=== PATIENT | male | born 1955 ===

== ENCOUNTER 2023-11-02 08:55 | Outpatient (AMB) | payer MEDICARE, SELFPAY ==
--- NOTE | 2023-11-02 08:57 | MHC.OFFVIS ---
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 The patient did undergo right knee arthroscopic surgery several years ago. He got fairly good relief from that surgery initially. The patient has tried Tylenol and anti-inflammatory medicines which gave him only mild relief. States that at times it feels like his right knee will give out. Allergies No Known Allergies Allergy (Verified 11/02/23 08:57) Medication List - Last Reconciled 11/02/23 by Gato Mueller MD gabapentin 300 mg PO TID hydrocortisone 2.5% appl topical mometasone 0.1% 0 appl topical Physical Exam Const Other: Well-nourished well-developed very friendly male awake alert and oriented x3 in no acute distress Extrem Other: Bilateral lower extremity examination shows good capillary refill, no skin lesions noted, normal sensation light touch Right knee examination shows minimal effusion, mild crepitus with range of motion, tenderness along his medial joint line, positive Juana's test, no instability Office Procedures Joint Injection/Drain Joint Injection/Drain Primary Site: right knee Prep: site was prepped using aseptic technique Injected: 40 mg of, DepoMedrol and 1% plain lidocaine Procedure: The patient tolerated the procedure well Coding 49949 - Large joint Procedure code (CPT) selection complete Results Reviewed Results Reviewed: X-rays of the patient's right knee show mild diffuse joint space narrowing, no acute bony abnormalities Assessment & Plan Assessment & Plan (1) Right knee pain: Code(s): M25.561 - Pain in right knee Category: Medical Plan Mr. Thurman presents with right knee pain due to early degenerative joint disease as well as possible recurrent medial meniscus tear. I had a lengthy discussion with the patient regarding the treatment options. Wishes to hold off on surgery for as long as possible. I agree with this plan. The risks and benefits of a right knee cortisone injection were discussed at length with the patient. The patient wished to proceed. He tolerated the injection well. He will continue with his activity modifications. He will follow up with me on an as-needed basis should his symptoms not plateau at an unacceptable level over the next few months. I spent 22 minutes in reviewing the patient's records and imaging studies, seeing the patient and documenting in the medical record. Orders: Orders XR knee RT 3V 11/02/23 M25.561 - Pain in right knee AMB Joint Injection/Aspiration 11/02/23 M25.561 - Pain in right knee Coding Level of Care Code Est Pt Level 3 (76702) Diagnoses Right knee pain M25.561 CPT Codes Coding - 89513 Large joint: 44525 - Large joint ([id number])
== END 2023-11-02 09:22 | disposition home or self-care (01) ==
PROVIDERS: Visit Provider Orthopaedic Surgery
DX: M25.561 Pain in right knee (principal)
CPT/HCPCS: 20610; 99213

== ENCOUNTER 2023-11-02 11:38 | Outpatient (REF) | payer MEDICARE, SELFPAY ==
--- NOTE | ~2023-11-02 | XR_ITS ---
EXAMINATION: XR KNEE, RIGHT CLINICAL INFORMATION: Pain. COMPARISON: None available. TECHNIQUE: Three views of the right knee. FINDINGS: Trace joint effusion. Mild narrowing of the medial compartment. Tiny medial marginal and posterior patellar osteophytes. Focal prepatellar soft tissue swelling along the inferomedial aspect of the patella. XR/XR knee RT 3V IMPRESSION: 1. Mild degenerative changes. 2. Focal prepatellar soft tissue swelling along the anterior inferomedial aspect of the patella.
== END 2023-11-02 11:39 | disposition home or self-care (01) ==
LOC: HO.HOSX 11:38
PROVIDERS: Visit Provider Orthopaedic Surgery
DX: M17.11 Unilateral primary osteoarthritis, right knee (principal)
CPT/HCPCS: 20610; 73562; 99212; J1010

== ENCOUNTER 2024-05-10 10:41 | Outpatient (AMB) | payer MEDICARE, SELFPAY ==
--- NOTE | 2024-05-10 10:52 | MHC.OFFVIS ---
Vital Signs 05/10/24 10:55 Height 6 ft Weight 218 lb BMI 29.6 Intake Visit Reasons: FC- Displaced fx of lateral end of LT clavicle Intake Note: Jake is a 68 year old right hand dominant male who presents today for an evaluation of left clavicle fx, DOI 05/08/24. Patient reports that he fell on his right side on the frozen ground. He was seen at [facility] in [place] where x-rays were taken and placed in a sling. He has ongoing discomfort/pain with a current pain level 1-2 out of 10. States with certain arm positions his pain increase to a pain level 7-8 out of 10. Denies numbness or tingling. Allergies No Known Allergies Allergy (Verified 05/10/24 10:53) Medication List - Last Reconciled 05/10/24 by Adams Cleveland PA-C gabapentin 300 mg PO TID hydrocortisone 2.5% appl topical mometasone 0.1% 0 appl topical HPI HPI FC- Displaced fx of lateral end of LT clavicle: Details: 68-year-old male presents to the office today for an injury he sustained to his left clavicle. He states he was carrying a tool bag and slipped and fell. He was seen at an urgent care where x-rays were obtained he was placed in a sling and referred to our office for ortho eval. 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 [facility] Surgical History (Updated 05/10/24 @ 10:54 by ONEIL Brooks) Hx of shoulder surgery Social History (Updated 05/10/24 @ 10:55 by ONEIL Brooks) Patient Tobacco Use Status: Never used Tobacco Current occupational status: unemployed Current occupation: right hand dominant Review of Systems Const All systems reviewed & are unremarkable except as noted in HPI and below Physical Exam Vital Signs: BMI result Body Mass Index 29.6 Const General: cooperative and no acute distress Orientation/consciousness: patient oriented x3 Resp Effort & Inspection: normal respiratory effort and able to speak in complete sentences Cardio Peripheral pulses: Peripheral pulses 2+ throughout Neuro General: patient oriented x3 Extrem Other: Left Clavicle No tenting. No skin breakdown. There is tenderness over the fracture site. Neurovascularly intact. Office Procedures AMB Fracture Care Fracture Billing Code: Fracture Billing Code Results Reviewed Results Reviewed: X-rays of the left clavicle obtained in the office today and reviewed by me show a minimally displaced left clavicle fracture towards the distal end. Assessment & Plan Assessment & Plan (1) Closed left clavicular fracture: Code(s): S42.002A - Fracture of unspecified part of left clavicle, initial encounter for closed fracture Category: Medical Plan: Case was discussed with Dr. Garrison who was available to see the patient with me today. We explained the extent of the injury to the patient and his spouse along with the options available which include surgical versus nonsurgical intervention. At this time because the fracture is minimally displaced and towards the most distal end of the clavicle the decision has been made to treat this without surgery. He can discontinue the use of the sling if he is at home and in a controlled environment. He can perform motions at waist level nothing overhead. No weight and nothing overhead with weight. I explained the importance of working on good posture and scapular stabilization techniques. He will see me back in 4-6 weeks with x-rays sooner if needed. Orders: Orders XR clavicle LT Today M89.8X1 - Other specified disorders of bone, shoulder Coding Level of Care Code New Pt Level 4 (14678) Complex EM visit Add On G2211 Diagnoses Closed left clavicular fracture S42.002A CPT Codes Fracture Care - Fracture Billing Code: Fracture Billing Code ([id number])
[2024-05-10 10:55] VITALS: BMI 29.6
== END 2024-05-10 11:30 | disposition home or self-care (01) ==
PROVIDERS: Visit Provider Physician Assistant
DX: S42.002A Fracture of unspecified part of left clavicle, initial encounter for closed fracture (principal)
CPT/HCPCS: 99213; G2211

== ENCOUNTER 2024-05-10 11:35 | Outpatient (REF) | payer MEDICARE, SELFPAY ==
--- NOTE | ~2024-05-10 | XR_ITS ---
EXAMINATION: XR CLAVICLE, LEFT CLINICAL INFORMATION: M89.8X1 - Other specified disorders of bone, shoulder COMPARISON: None available. TECHNIQUE: Three views of the left clavicle. FINDINGS: Is a lateral clavicle fracture with overriding of fracture fragments. The glenohumeral and AC joint is normal. There is a solitary screw along the left greater tuberosity from previous rotator cuff intervention. There is mild soft tissue swelling. XR/XR clavicle LT IMPRESSION: Lateral clavicle fracture with overriding of fracture fragments. Electronically signed by: Fransico Travis MD 05/11/2024 09:36 AM QUINN
== END 2024-05-10 11:36 | disposition home or self-care (01) ==
LOC: HO.HOSX 11:35
PROVIDERS: Visit Provider Physician Assistant
DX: M89.8X1 Other specified disorders of bone, shoulder (principal); S42.002A Fracture of unspecified part of left clavicle, initial encounter for closed fracture
CPT/HCPCS: 73000; 99212

== ENCOUNTER 2024-06-20 08:41 | Outpatient (AMB) | payer MEDICARE, SELFPAY ==
--- NOTE | 2024-06-20 08:57 | A.OFFVIS_ITS ---
Vital Signs 06/20/24 09:02 Height 6 ft Weight 218 lb BMI 29.6 Intake Visit Reasons: OV- LT clavicle fx, DOI 05/08/24 w/ XR Intake Note: Jake is a 68 year old right hand dominant male who presents today for a follow up of left clavicle fx, DOI 05/08/24. Xrays updated. Patient reports he is doing well, states his pain level will fluctuate for a 2-5 out of 10. He describes his discomfort as a dull ache. He would like to discuss when he is able to return to therapy for his neck. Allergies No Known Allergies Allergy (Verified 06/20/24 09:02) Medication List - Last Reconciled 06/20/24 by Adams Cleveland PA-C gabapentin 300 mg PO TID hydrocortisone 2.5% appl topical mometasone 0.1% 0 appl topical HPI HPI OV- LT clavicle fx, DOI 05/08/24 w/ XR: Details: 68-year-old male presents to the office today for a follow-up left clavicle fracture date of injury 05/08/2024. States since his last visit with me he has been performing activities as tolerated which include lifting reaching and performing activities overhead. He states that he does not have significant discomfort however he may notice a dull ache around the shoulder region. He does have a chronic neck condition that is being treated with physical therapy which he has had to put on hold until he was cleared from his clavicle injury. [facility] Surgical History Hx of shoulder surgery Social History Patient Tobacco Use Status: Never used Tobacco Current occupational status: unemployed Current occupation: right hand dominant Review of Systems Const All systems reviewed & are unremarkable except as noted in HPI and below Physical Exam Vital Signs: BMI result Body Mass Index 29.6 Extrem Other: Left clavicle skin is intact no open wounds or abrasions. No bony prominence. Mild discomfort around the soft tissues of the clavicle but no specific bony tenderness to palpation. Has full range of motion in all planes and neurovascularly intact. Results Reviewed Results Reviewed: X-rays of the left clavicle obtained in the office today and reviewed by me show a minimally displaced left clavicle fracture towards the distal end with interval healing Assessment & Plan Assessment & Plan (1) Closed left clavicular fracture: Code(s): S42.002A - Fracture of unspecified part of left clavicle, initial encounter for closed fracture Category: Medical Qualifiers: Encounter type: subsequent encounter Clavicle location: lateral end Fracture alignment: displaced Fracture healing: with routine healing Qualified Code(s): S42.032D - Displaced fracture of lateral end of left clavicle, subsequent encounter for fracture with routine healing Plan: He will continue with activities as tolerated as long as he is not having significant pain or new symptoms. He can resume his therapy for his neck which I think would also include some scap stabilization exercises to help with the shoulder. He does not need to return to see me unless there are concerns otherwise follow up as needed. Orders: Orders XR clavicle LT Today M89.8X1 - Other specified disorders of bone, shoulder Coding Level of Care Code Global (38809) Diagnoses Closed displaced fracture of acromial end of left clavicle with routine healing, subsequent encounter S42.032D Encounter type: subsequent encounter Clavicle location: lateral end Fracture alignment: displaced Fracture healing: with routine healing
[2024-06-20 09:02] VITALS: BMI 29.6
--- OUTSIDE RECORDS SUMMARY | 2024-06-20 09:20 | XMS_ITS | Clinical Summary ---
Author Organization [facility] [address] [facility] [address] Address [address] [place] [address] Phone Care Team Providers Care Sales Counselor Name Role Phone Vipul Cabrales MD Primary Care Provider [phone] Allergies No known active allergies Medications sildenafiL (VIAGRA) 50 mg tablet TAKE ONE TABLET BY MOUTH AT BEDTIME NEEDED 2 Active EPINEPHrine (EpiPen 2-Chris) 0.3 mg/0.3 mL injection USE DIRECTED FOR ANAPHYLAXIS THEN CALL 911 3 Active hydrocortisone (ANUSOL-HC) 2.5 % rectal cream Apply bid prn 3 Active hydrocortisone 2.5 % cream Apply 2 times a day as needed 4 Active gabapentin (NEURONTIN) 300 mg capsule Take 600 mg by mouth at bedtime. Active mometasone (ELOCON) 0.1 % cream Apply sparingly twice a day to eczema as needed 1 Active MEN'S MULTI-VITAMIN ORAL 1 daily Active medical supply, miscellaneous (MISCELLANEOUS MEDICAL SUPPLY MISC) CPAP HISTORICAL (HISTORICAL CPAP) by Nasal route at bedtime. ASV E 5 max 10/ I 10 , [employer] Active terbinafine (LamISIL) 250 mg tablet Take 1 tablet (250 mg total) by mouth 1 (one) time each day. 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 Tipton Stable based on 03/06 follow up ultrasound; to recheck in 03/07 GERD (gastroesophageal reflux disease) 2 Overview (04/03/2024): Garrett Matthew PA-c, Dr. Tipton 12/04 - erosions on upper endoscopy, abdominal ultrasound within normal limits 01/04- mAalia Pleitez RD Eczema 07/30/2011 Overview (04/03/2024): Woo Melo PA-C Lateral epicondylitis 06/23/2011 Overview (04/03/2024): Attain physical therapy Tear of medial meniscus of right knee 05/25/2011 Overview (04/03/2024): Dr. Choi- 05/06- arthoscopy pending Shoulder pain 02/24/2011 Overview (04/03/2024): Dr. Choi- arthroscopy on L in , 05/09 - right cuff repair; [facility] Obstructive sleep apnea 10/09/2010 Overview (04/03/2024): Dr. Giron - CPAP 11/04- adaptive servo ventilation (ASV) [facility] Polysomnogram treatment study with AVAPS. Date 12/28/2016 . SE 63 % SM 66 %; spent 16 % of the study in REM. On AVAPS; RDI 3/9 (AHI 2.8), Central apneas 0; Obstructive apneas 0; Mixed apneas 0; hypopneas 15; RERAs 6; and, average oxygen saturation was 96%. For the entire study, PLMs ~44. [facility] Polysomnogram ASV treatment study. Date 08/22/2020. Wt 200#; BMI 27; SE 62% SM 63%; spent 23% of the study in REM. On ASV; RDI 2.5 (AHI 1.93), Central apneas 3; Obstructive apneas 4; Mixed apneas 0; hypopneas three; RERAs three; and, average oxygen saturation was 95%. For the entire study, PLMs ~64. ASV at EPAP 10 -15 cm; pressure support 0-15; max pressure 25 cm; backup respiratory rate auto. 2016 echocardiogram showed EF 60 to 65%. 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 Choi, [facility] Insomnia 07/08/2010 Overview (04/03/2024): Dr. Giron s/p PSG, CPAP Left knee pain 07/08/2010 Pure hypercholesterolemia 12/21/2006 Encounters Date Type Department Care Team Description 05/01/2024 11:35 AM EST Lab Draw Station - [address] [phone] Elevated PSA; Encounter for screening for malignant neoplasm of prostate; Toenail fungus 05/01/2024 10:45 AM EST Office Visit Adult Medicine - [address] [id number] Lilia Ivey PA Lateral epicondylitis of both elbows (Primary Dx); Elevated PSA; Encounter for screening for malignant neoplasm of prostate; Toenail fungus; Erectile dysfunction, unspecified erectile dysfunction type; Obstructive sleep apnea from Last 3 Months Immunizations Name Administration Dates Next Due Influenza trivalent, 0.5mL ( Fluad) 65yo and older 02/17/2021 Influenza trivalent, 0.5mL, preservative free (Fluarix; FluLaval; Fluzone) ages 6mo and older (Afluria) 3 years and older 02/05/2020,01/28/2017,02/20/2015,2012,03/11/2008 Influenza trivalent, with preservative (Fluzone; Afluria) 6mo and older 01/28/2019 Moderna SARS-CoV-2 COVID-19, mRNA, LNP-S, preservative free 02/25/2021 Pneumococcal conjugate 20 va lent (Prevnar 20, PCV 20) 2mo and older 02/10/2023 Td Tetanus diptheria (Tdvax) 7yo and older 11/30/2002 Td, Unspecified 11/30/2002 Tdap Tetanus diptheria acell ular pertussis (Boostrix; Adacel) 7yo and older 10/22/2015 Zoster recombinant (Shingrix ) 19yo and older 04/14/2019,01/28/2019 Surgical History Surgery Date Site/Laterality Comments SHOULDER SURGERY 2009 PROCEDURE: HISTORICAL SHOULDER SURGERY; COMMENT: Rene Choi - bone spurs NASAL SEPTUM SURGERY PROCEDURE: HI SEPTOPLASTY/SUBMUCOUS RESECJ W/WO CARTILAGE GRF; COMMENT: deviated septum repair VASECTOMY PROCEDURE: HI VASECTOMY UNI/BI SPX W/POSTOP SEMEN EXAMS COLONOSCOPY 08/20/2008 PROCEDURE: HISTORICAL COLONOSCOPY; COMMENT: Dr Acevedo - hemorrhoids o/w normal. ESOPHAGOGASTRODUODENOSCOPY 12/13/11 PROCEDURE: HI EGD TRANSORAL BIOPSY SINGLE/MULTIPLE; COMMENT: antral erosion/superficial ulcer bx eroison, anturm and duod - duod nl, antral eroison, H.pylori neg, GE jxn bx =erosive esophagitis SHOULDER SURGERY 07/05/12 PROCEDURE: HISTORICAL SHOULDER SURGERY; COMMENT: Left rotator cuff repair - Dr. Choi Family History Medical History Relation Name Comments Other cancer Father small cell lymp karissa Hypertension Mother Relation Name Status Comments Father Mother Alive Social History Tobacco Use Types Packs/Day Years Used Date Smoking Tobacco: Never Smokeless Tobacco: Never Alcohol Use Standard Drinks/Week Comments Not Currently 0 (1 standard drink = 0.6 oz pur e alcohol) Sex and Gender Information Value Date Recorded Sex Assigned at Male 03/27/2024 8:59 AM EST Legal Sex Male 10:35 PM EST Gender Identity Male 03/27/2024 8:59 AM EST Sexual Orientation Not on file Obstetrics History Last Filed Vital Signs Vital Sign Reading Time Taken Comments Blood Pressure 122/76 05/01/2024 10:51 AM EST Pulse 68 05/01/2024 10:51 AM EST Temperature 36.7 ??C (98 ??F) 05/01/2024 10:51 AM EST Respiratory Rate - - Oxygen Saturation - - Inhaled Oxygen Concentration - - Weight 98.9 kg (218 lb) 05/01/2024 10:51 AM EST Height 182.9 cm (6') 05/01/2024 10:51 AM EST Body Mass Index 29.57 05/01/2024 10:51 AM EST Plan of Treatment Upcoming Encounters Date Type Department Care Team (Late st Contact Info) Description 07/17/2024 3:00 PM EDT Office Visit Adult Medicine [facility] [address] [place] [address] Vipul Cabrales MD [address] [place] [address] Health Maintenance Due Date Last Done Comments Depression Screening 04/03/2022 Medicare Annual Wellness Visit 04/03/2022 Social Influencers of Health Screening 04/03/2022 Falls Risk Assessment 2022 Hepatitis B Vaccines (2 of 2 - CpG 2-dose series) 11/11/2022 10/14/2022 COVID-19 Vaccine ( season) 2023 10/14/2022, 08/17/2021, 02/25/2021, Additional history exists DTaP,Tdap,and Td Vaccines (4 - Td or Tdap) 10/21/2025 10/22/2015, 11/30/2002, 11/30/2002 Cholesterol Screening (Lipid Panel) 11/14/2028 11/15/2023, 11/15/2023 Colorectal Cancer Screening: Colonoscopy 02/20/2029 02/20/2019 RSV Immunization Patients 60+ Years Old (1 - 1-dose 75+ series) 2032 Hepatitis C Screening Completed 10/22/2015 Zoster Vaccines Completed 04/14/2019, 01/28/2019 Pneumococcal Vaccine: 50+ Years Completed 02/10/2023 Influenza Vaccine Completed 02/24/2024, , 02/12/2022, Additional history exists HIB Vaccines Aged Out No longer eligi ble based on patient's age to complete this topic HPV Vaccines Aged Out No longer eligi ble based on patient's age to complete this topic Hepatitis A Vaccines Aged Out No long er eligible based on patient's age to complete this topic IPV Vaccines Aged Out No longer eligi ble based on patient's age to complete this topic MMR Vaccines Aged Out No longer eligi ble based on patient's age to complete this topic Meningococcal ACWY Vaccine Aged Out N o longer eligible based on patient's age to complete this topic Meningococcal B Vacine Aged Out No lo nger eligible based on patient's age to complete this topic RSV Immunization Patients Under 20 months Aged Out No longer eligible based on patient's age to complete this topic Varicella Vaccines Aged Out No longer eligible based on patient's age to complete this topic Procedures Procedure Name Priority Date/Time Associated Diagnosis Comments COMPREHENSIVE METABOLIC PANEL Routine 05/01/2024 11:37 AM EST Toenail fungus PROSTATE SPECIFIC ANTIGEN SCREEN Routine 05/01/2024 11:37 AM EST Elevated PSA Encounter for screening for malignant neoplasm of prostate LIPID PANEL Routine 11/15/2023 COLONOSCOPY Routine 02/20/2019 HEPATITIS C SCREENING Routine 10/22/2015 from Last 3 Months or Most Recently Relevant to Health Maintenance Results * (ABNORMAL) Prostate specific antigen screen (05/01/2024 11:37 AM EST) PSA 5.14(H) 0.00 - 4.00 ng/mL LAB CHEMISTRY METHOD 05/01/2024 4:18 PM EST [facility] Blood Venous blood specimen / Unknown Venipuncture / Unknown 05/01/2024 11:37 AM EST 05/01/2024 11:37 AM EST Narrative [facility] - 05/01/2024 4:18 PM EST The Siemens Advia Centaur Chemiluminescent Immunoassay is used. Results obtained with different assay methods or kits cannot be used interchangeably. Results cannot be interpreted as absolute evidence of the presence or absence of malignant disease. us Lilia RITTER LAB BLOOD ORDERABLES Final Result [facility] [address] [place] [address], * Comprehensive metabolic panel (05/01/2024 11:37 AM EST) Sodium 137 133 - 145 mmol/L LAB CHEMISTRY METHOD 05/01/2024 3:47 PM [facility] Potassium 4.4 3.5 - 5.5 mmol/L LAB CHEMISTRY METHOD 05/01/2024 3:47 PM [facility] Chloride 104 96 - 110 mmol/L LAB CHEMISTRY METHOD 05/01/2024 3:47 PM [facility] CO2 27 21 - 32 mmol/L LAB CHEMISTRY METHOD 05/01/2024 3:47 PM [facility] Anion Gap 6 3 - 11 LAB CHEMISTRY METHOD 05/01/2024 3:47 PM [facility] Glucose 93 70 - 100 mg/dL LAB CHEMISTRY METHOD 05/01/2024 3:47 PM [facility] BUN 21 5 - 25 mg/dL LAB CHEMISTRY METHOD 05/01/2024 3:47 PM [facility] Creatinine 0.96 0.70 - 1.30 mg/dL LAB CHEMISTRY METHOD 05/01/2024 3:47 PM [facility] eGFR 87 >=60 mL/min/1. 73m2 LAB CHEMISTRY METHOD 05/01/2024 3:47 PM [facility] Comment:Calculation based on the??Chronic Kidney Disease Epidemiology Collaboration (CKD-EPI) equation refit??without adjustment for race. BUN/Creatinine Ratio 21.9 LAB CHEMISTRY METHOD 05/01/2024 3:47 PM [facility] Calcium 9.4 8.5 - 10.5 mg/dL LAB CHEMISTRY METHOD 05/01/2024 3:47 PM [facility] AST (SGOT) 30 10 - 42 unit/L LAB CHEMISTRY METHOD 05/01/2024 3:47 PM [facility] ALT (SGPT) 50 10 - 60 unit/L LAB CHEMISTRY METHOD 05/01/2024 3:47 PM [facility] Alkaline Phosphatase 75 42 - 121 unit/L LAB CHEMISTRY METHOD 05/01/2024 3:47 PM [facility] Total Protein 7.4 6.0 - 8.0 g/dL LAB CHEMISTRY METHOD 05/01/2024 3:47 PM [facility] Albumin 4.2 3.2 - 5.0 g/dL LAB CHEMISTRY METHOD 05/01/2024 3:47 PM [facility] Total Bilirubin 0.6 0.0 - 1.4 mg/dL LAB CHEMISTRY METHOD 05/01/2024 3:47 PM [facility] Blood Venous blood specimen / Unknown Venipuncture / Unknown 05/01/2024 11:37 AM EST 05/01/2024 11:37 AM EST Lilia RITTER LAB BLOOD ORDERABLES Final Result [facility] [address] [place] [address], * (ABNORMAL) Lipid panel (11/15/2023) Pathologist [facility] LDL/HDL Ratio 3 0 - 4 Triglycerides 127 0 - 150 mg/dL Cholesterol 243(A) 0 - 200 mg/dL HDL 84 >=40 mg/dL LDL Cholesterol 134(A) 0 - 100 mg/dL Blood Venous blood specimen / Unknown Historical Provider LAB BLOOD ORDERABLES Demetra l Result * Colonoscopy (02/20/2019) Pathologist [facility] Colonoscopy abstracted, no interpretation Anatomical Region Laterality Modality Other Historical Provider HEALTH MAINTENANCE Final Result * Hepatitis C Screening (10/22/2015) Hepatitis C Screening abstracted us Historical Provider HEALTH MAINTENANCE Final Result from Last 3 Months or Most Recently Relevant to Health Maintenance Insurance MEDICARE [facility] Care Teams Sales Counselor Relationship Specialty Start Date End Date Vipul Cabrales MD [address] [place] [id number] PCP - General Internal Medicine 06/05/15
--- OUTSIDE RECORDS SUMMARY | 2024-06-20 09:20 | XMS_ITS | Clinical Summary ---
Author Organization [facility] Address [address] [place] [address] Care Team Providers Care Wardrobe Specialty Worker Name Role Phone Arnold Cabrales MD Primary Care Provider [phone] Allergies No known active allergies Medications Medication Sig Dispensed Refills Start Date End Date Status gabapentin (NEURONTIN) 300 MG capsule Take 300-600 mg by mouth every night at bedtime. 0 08/26/2021 Active meloxicam (MOBIC) 15 MG tablet TAKE ONE TABLET BY MOUTH ONCE A DAY FOR 30 DAYS 0 08/13/2021 Active tamsulosin (FLOMAX) 0.4 MG CAPS TAKE 1 CAPSULE BY MOUTH EVERYDAY AT BEDTIME 0 08/26/2021 Active sildenafil (VIAGRA) 50 MG tablet TAKE 1 TABLET BY MOUTH AT BEDTIME NEEDED 0 09/03/2021 Active Family History Medical History Relation Name Comments Cancer Father Diabetes Mother Hypertension Mother Relation Name Status Comments Father Mother Social History Tobacco Use Types Packs/Day Years Used Date Smoking Tobacco: Never Smokeless Tobacco: Never Alcohol Use Standard Drinks/Week Comments Yes 1 (1 standard drink = 0.6 oz pur e alcohol) Sex and Gender Information Value Date Recorded Sex Assigned at Not on file Gender Identity Not on file Sexual Orientation Not on file Job Start Date Occupation Industry Not on file Not on file Not on file Last Filed Vital Signs Vital Sign Reading Time Taken Comments Blood Pressure - - Pulse - - Temperature - - Respiratory Rate - - Oxygen Saturation - - Inhaled Oxygen Concentration - - Weight 93 kg (205 lb) 09/03/2021 8:37 AM EDT Height 182.9 cm (6') 09/03/2021 8:37 AM EDT Body Mass Index 27.8 09/03/2021 8:37 AM EDT Plan of Treatment Health Maintenance Due Date Last Done Comments Hepatitis C Screening 1955 COVID-19 Vaccine (#1) 05/11/1958 Depression Screening 1969 BMI Counseling 11/09/1975 Preventative Health Evaluation 11/09/1975 Colon Cancer Screening (Colonoscopy) 2002 Fall Risk Assessment 2022 Pneumococcal Vaccine (1 of 1 - PCV) 2022 Influenza Vaccine (#1) 2023 , 02/05/2020, 01/28/2019, Additional history exists DTap / Tdap / Td (2 - Td or Tdap) 10/21/2025 10/22/2015 RSV Adult > 60+ Yrs or (1 - 1-dose 75+ series) 2032 Shingrix-Zoster Vaccine Completed 04/14/2019, 01/28 Hepatitis B Vaccines Aged Out No long er eligible based on patient's age to complete this topic RSV Ped < 20 months Aged Out No longe r eligible based on patient's age to complete this topic Care Teams Wardrobe Specialty Worker Relationship Specialty Start Date End Date Arnold Cabrales MD PCP - General Information Technology Internship 08/21/21
--- OUTSIDE RECORDS SUMMARY | 2024-06-20 09:20 | XMS_ITS | Patient Health Record ---
Author Organization [facility], Address [address] [place] [address] Support Name Relationship Address Phone Jake Thurman Guarantor Unknown [phone] Reason For Referral No Information Plan Of Treatment Pending Test Test Name Order Date SARS - CoV - 2 Antigen 04/01/2020 Insurance Providers Payer Name Payer Address Payer Phone Subscriber Number Group Number Insured Name Patient Relationship to Insured Coverage Start Date Coverage End Date [place] [facility] [address] [place] [address] [id number] Jake Thurman Self - patient is the insured Medical (General) History Surgical History Surgery Date(Month/Year)
== END 2024-06-20 11:14 | disposition home or self-care (01) ==
PROVIDERS: Visit Provider Physician Assistant
DX: S42.032D Displaced fracture of lateral end of left clavicle, subsequent encounter for fracture with routine healing (principal)
CPT/HCPCS: 99213

== ENCOUNTER → 2024-06-20 08:42 | Outpatient (BNV) | payer MEDICARE, SELFPAY | PROVIDERS: Visit Provider Radiology Diagnostic Radiology | DX: S42.002D Fracture of unspecified part of left clavicle, subsequent encounter for fracture with routine healing (principal) | CPT/HCPCS: 73000 ==

== ENCOUNTER 2024-06-20 10:04 | Outpatient (REF) | payer MEDICARE, SELFPAY ==
--- NOTE | ~2024-06-20 | XR_ITS ---
EXAMINATION: XR CLAVICLE LEFT HISTORY: M89.8X1 - Other specified disorders of bone, shoulder COMPARISON: Comparison is made with the prior examination dated 05/10/2024. FINDINGS: Two views of the left clavicle are submitted. Osseous mineralization is normal. Again seen is a mildly displaced fracture of the distal clavicle. The appearance is not significantly changed from the prior study. Again noted is a screw in the region of the greater tuberosity of the humerus. The glenohumeral and acromioclavicular joint spaces are preserved. The soft tissues are unremarkable. XR/XR clavicle LT IMPRESSION: Mildly displaced fracture of the distal clavicle without change. Electronically signed by: Xavier Gilliland MD 06/20/2024 11:39 AM QUINN
--- OUTSIDE RECORDS SUMMARY | 2024-06-22 11:11 | XMS_ITS | Clinical Summary ---
Author Organization [facility] [address] [facility] [address] Address [address] [place] [address] Phone Care Team Providers Care Operations Controller Name Role Phone Vipul Cabrales MD Primary Care Provider [phone] Allergies No known active allergies Medications sildenafiL [...] endoscopy, abdominal ultrasound within normal limits 01/04- Amalia Pleitez RD Eczema 07/30/2011 Overview (04/03/2024): Woo [...] - CPAP 11/04- adaptive servo ventilation (ASV) [facility] [place] study with AVAPS. Date 12/28/2016 . SE 63 % SM 66 %; spent 16 % of the study in REM. On AVAPS; RDI 3/9 (AHI 2.8), Central apneas 0; Obstructive apneas 0; Mixed apneas 0; hypopneas 15; RERAs 6; and, average oxygen saturation was 96%. For the entire study, PLMs ~44. [facility] Polysomnogram ASV treatment study. Date [...] patella, right 07/08/2010 Overview (04/03/2024): Dr. Choi, [facility] Insomnia 07/08/2010 Overview (04/03/2024): Dr. Giron s/p PSG, CPAP Left knee pain 07/08/2010 Pure hypercholesterolemia 12/21/2006 Encounters Date Type Department Care Team Description 05/01/2024 11:35 AM EST Lab Draw Station - [address] [phone] Elevated PSA; Encounter for screening for malignant neoplasm of prostate; Toenail fungus 05/01/2024 10:45 AM EST Office Visit Adult Medicine - [address] [phone] Lilia Ivey PA Lateral epicondylitis of both [...] - bone spurs NASAL SEPTUM SURGERY PROCEDURE: [place] SEPTOPLASTY/SUBMUCOUS RESECJ W/WO CARTILAGE GRF; COMMENT: deviated septum repair VASECTOMY PROCEDURE: [place] VASECTOMY UNI/BI SPX W/POSTOP SEMEN EXAMS COLONOSCOPY 08/20/2008 PROCEDURE: HISTORICAL COLONOSCOPY; COMMENT: Dr Acevedo - hemorrhoids o/w normal. ESOPHAGOGASTRODUODENOSCOPY 12/13/11 PROCEDURE: [place] EGD TRANSORAL BIOPSY SINGLE/MULTIPLE; COMMENT: antral erosion/superficial [...] 3:00 PM EDT Office Visit Adult Medicine [facility] [address] [place] [address] Vipul Cabrales MD [address] [place] [address] Health Maintenance Due Date Last Done Comments [...] LAB CHEMISTRY METHOD 05/01/2024 4:18 PM EST [facility] Blood Venous blood specimen / Unknown Venipuncture / Unknown 05/01/2024 11:37 AM EST 05/01/2024 11:37 AM EST Narrative [facility] - 05/01/2024 4:18 PM EST The Siemens Advia Centaur Chemiluminescent Immunoassay is used. Results obtained with different assay methods or kits cannot be used interchangeably. Results cannot be interpreted as absolute evidence of the presence or absence of malignant disease. us Lilia RITTER LAB BLOOD ORDERABLES Final Result [facility] [address] [place] [address], * Comprehensive metabolic panel (05/01/2024 11:37 AM [...] Lilia RITTER LAB BLOOD ORDERABLES Final Result [facility] [address] [place] [address], * (ABNORMAL) Lipid panel (11/15/2023) Pathologist [facility] LDL/HDL Ratio 3 0 - 4 Triglycerides 127 0 - 150 mg/dL Cholesterol 243(A) 0 - 200 mg/dL HDL 84 >=40 mg/dL LDL Cholesterol 134(A) 0 - 100 mg/dL Blood Venous blood specimen / Unknown Historical Provider LAB BLOOD ORDERABLES Demetra l Result * Colonoscopy (02/20/2019) Pathologist [facility] Colonoscopy abstracted, no interpretation Anatomical Region Laterality Modality Other Historical Provider HEALTH MAINTENANCE Final Result * Hepatitis C Screening (10/22/2015) Hepatitis C Screening abstracted us Historical Provider HEALTH MAINTENANCE Final Result from Last 3 Months or Most Recently Relevant to Health Maintenance Insurance MEDICARE [facility] Care Teams Operations Controller Relationship Specialty Start Date End Date Vipul Cabrales MD [address] [place] [id number] PCP - General Internal Medicine 06/05/15
--- OUTSIDE RECORDS SUMMARY | 2024-06-22 11:11 | XMS_ITS | Patient Health Record ---
Author Organization [facility], Address [address] [place] [address] Support Name Relationship Address Phone Jake Thurman Guarantor Unknown [phone] Reason For Referral No Information Plan Of Treatment Pending Test Test Name Order Date SARS - CoV - 2 Antigen 04/01/2020 Insurance Providers Payer Name Payer Address Payer Phone Subscriber Number Group Number Insured Name Patient Relationship to Insured Coverage Start Date Coverage End Date [place] [address] [place] [address] [id number] Jake Thurman Self - patient is the insured Medical (General) History Surgical History Surgery Date(Month/Year)
--- OUTSIDE RECORDS SUMMARY | 2024-06-22 11:11 | XMS_ITS | Clinical Summary ---
Author Organization [facility] Address [address] [place] [address] Care Team Providers Care Electrical Maintenance Technician Name Role Phone Arnold Cabrales MD Primary Care Provider [phone] Allergies No known active allergies Medications Medication [...] age to complete this topic Care Teams Electrical Maintenance Technician Relationship Specialty Start Date End Date Arnold Cabrales MD PCP - General Timekeeper 08/21/21
== END 2024-06-20 10:05 | disposition home or self-care (01) ==
LOC: HO.HOSX 10:04
PROVIDERS: Visit Provider Physician Assistant
DX: S42.032D Displaced fracture of lateral end of left clavicle, subsequent encounter for fracture with routine healing (principal); M89.8X1 Other specified disorders of bone, shoulder
CPT/HCPCS: 73000; 99212